=== PATIENT | male | born 1960 | race Caucasian/White ===

== ENCOUNTER → 2021-11-07 12:45 | Outpatient (CLI) | payer BC, SELFPAY ==
--- NOTE | ~2021-11-07 | MR_ITS ---
EXAMINATION: MR shoulder RT w con DATE: 11/07/2021 15:01 INDICATION: Right shoulder pain TECHNIQUE: Magnetic resonance imaging (MRI) of the right shoulder was performed following intra-fouzia cular gadolinium contrast injection and without intravenous contrast. Details of the glenohumeral nando nt injection have been dictated separately. Sequences included axial T2-weighted FS FSE, axial T1-we ighted FS FSE, coronal oblique T1-weighted FS FSE, coronal oblique T2-weighted FSE, sagittal T2-weigh antonio FS FSE, sagittal T1-weighted FSE, and ABER (abduction external rotation) T1-weighted FS FSE. COMPARISON: None. FINDINGS: Coracoacromial arch: The acromion undersurface is curved in morphology (type II). The coracoacromial ligament is normal. M oderate acromioclavicular osteoarthritis. Rotator cuff: Mild supraspinatus and infraspinatus tendinopathy. Full-thickness tear at the critical zone of the rodriguez praspinatus and anterior infraspinatus tendons. The tear defect measures 2 cm AP and up to 1.6 in med ial to lateral width. The tear begins anteriorly approximately 7 mm from the footplate and approximat farrah 1.7 cm from the footplate posteriorly. The teres minor tendon is normal. Mild subscapularis tendi nopathy with partial-thickness tear along the lateral margin of the lesser tuberosity footplate allow ing partial medial subluxation of the long head biceps tendon across the medial rim of the intertuber cular groove. No asymmetric rotator cuff muscle atrophy. Biceps tendon, glenoid labrum and glenohumeral cartilage: Moderate tendinopathy of the intra-articular long head biceps tendon without discrete tear. Partial-t hickness tear along the inner third of the 9:00-8:00 position of the posterior glenoid labrum. The hu meral cartilage remains normal. Bones and other: Normal marrow signal with no edema, fracture or pathologic marrow replacing process. There is extens ion of contrast through the full-thickness rotator cuff tear into both the subacromial/subdeltoid bur sa as well as the subcoracoid bursa. IMPRESSION: 1. Moderate-sized full-thickness tear along the critical zone of the supraspinatus and anterior infra spinatus tendons. 2. Mild subscapularis tendinopathy with mild tarsal thickness tear along the lateral margin of the le sser tuberosity footplate allowing medial subluxation of the long head biceps tendon across the media l rim of the intertubercular groove. 3. Moderate tendinopathy without discrete tear of the intra-articular long head biceps tendon. 4. Moderate acromioclavicular osteoarthritis. Reviewed, dictated and finalized at location [facility]. PRODUCTION WORKER IMPRESSION: 1. Moderate-sized full-thickness tear along the critical zone of the supraspina tus and anterior infraspinatus tendons. 2. Mild subscapularis tendinopathy with mild tarsal thickness tear along the la teral margin of the lesser tuberosity footplate allowing medial subluxation of the long head biceps tendon across the medial rim of the intertubercular groove . 3. Moderate tendinopathy without discrete tear of the intra-articular long head biceps tendon. 4. Moderate acromioclavicular osteoarthritis.
--- NOTE | ~2021-11-07 | XR_ITS ---
XR fl inj shoulder RT - MR/CT DATE: 11/07/2021 14:09 INDICATION: Right shoulder pain. MR contrast material injection for MRI shoulder examination TECHNIQUE: The purpose of the procedure and technique were discussed with the patient. The patient ve rbalized understanding and gave consent. Following sterile preparation of the anterior aspect of the right shoulder and placement of sterile d rape, 1% lidocaine local anesthetic was a weir fisher to the skin of the anterior aspect of the right sh oulder and the underlying subcutaneous tissues. A 22-gauge spinal needle was introduced from an anterior approach into the right glenohumeral joint s pace using fluoroscopic guidance. 12 cc of mixed lidocaine, dilute multi-Chuck and Omnipaque 350 was injected under fluoroscopic visual ization to ensure intra-articular injection. A single radiographic image was saved. The patient tolerated the procedure very well, without complaint or apparent complication. IMPRESSION: Preprocedural glenohumeral joint intra-articular contrast material injection for MRI shou lder examination Reviewed, dictated and finalized at [facility]. Reviewed, dictated and finalized at [facility]. COMBER IMPRESSION: Preprocedural glenohumeral joint intra-articular contrast material injection for MRI shoulder examination
== END ==
PROVIDERS: PCP Internal Medicine
DX: M25.511 Pain in right shoulder (principal); S46.911A Strain of unspecified muscle, fascia and tendon at shoulder and upper arm level, right arm, initial encounter; S46.111A Strain of muscle, fascia and tendon of long head of biceps, right arm, initial encounter; M19.011 Primary osteoarthritis, right shoulder
CPT/HCPCS: 23350; 73222; 77002; A9577; Q9966

== ENCOUNTER → 2022-06-26 10:15 | Outpatient (CLI) | payer BC, SELFPAY ==
--- NOTE | ~2022-06-26 | CT_ITS ---
EXAMINATION: CT lung screening DATE: 06/26/2022 10:35 INDICATION: Personal history of tobacco dependence TECHNIQUE: Computed tomography (CT) of the chest was performed without intravenous contrast. The dose -length product was 188.61 mGy-cm. Automated exposure control and iterative reconstruction technique were employed. COMPARISON: None FINDINGS: Heart size is normal. No significant pleural or pericardial effusion. Upper abdomen is unre markable. No thoracic lymphadenopathy. There is atherosclerosis. No endobronchial lesions. No pneumot horax. No focal airspace consolidation. There are small 2-3 mm fissural nodules on the right. There a re a few small 1-2 mm nodules bilaterally, likely benign. There is mild thickening of the esophagus d istally, suspicious for esophagitis. There is moderate thoracic spondylosis. IMPRESSION: 1. Lung-RADS category 2: Benign appearance or behavior. Continue annual screening with noncontrast lo w-dose chest CT in 12 months. Reviewed, dictated and finalized at [facility]. IMPRESSION: 1. Lung-RADS category 2: Benign appearance or behavior. Continue annual screeni ng with noncontrast low-dose chest CT in 12 months.
== END ==
PROVIDERS: PCP Internal Medicine; Visit Provider Internal Medicine
DX: Z12.2 Encounter for screening for malignant neoplasm of respiratory organs (principal); Z87.891 Personal history of nicotine dependence
CPT/HCPCS: 71271

== ENCOUNTER 2024-09-04 11:19 | Outpatient (CLI) | payer MEDICARE, OTHER, SELFPAY ==
--- NOTE | ~2024-09-04 | CT_ITS ---
CT Scan of the Chest without Contrast: Clinical Indication: Lung cancer screening, nicotine dependence Technique: Contiguous sections were acquired throughout the chest without intravenous contrast. Dose reduction technique was used on this scan by utilizing automated exposure control and iterative recon struction technique. The dose-length product (DLP) was 189.04 mGy-cm. COMPARISON: 06/26/2022 Findings: There is no evidence of any significant mediastinal, hilar or axillary lymphadenopathy. Extensive cor onary artery calcifications are present. There is no evidence of pleural or pericardial effusion. There is linear scarring or atelectasis in the right middle lobe. No pulmonary nodules or infiltrates are noted. Images through the upper abdomen reveal no abnormalities. Impression: Lung RADS 1: Negative. 12 month follow-up screening CT advised. Reviewed, dictated and finalized at [facility]. Impression: Lung RADS 1: Negative. 12 month follow-up screening CT advised.
== END 2024-09-04 11:20 | disposition home or self-care (01) ==
LOC: MICIMG 11:20
PROVIDERS: PCP Internal Medicine; Visit Provider Internal Medicine
DX: Z12.2 Encounter for screening for malignant neoplasm of respiratory organs (principal); Z87.891 Personal history of nicotine dependence
CPT/HCPCS: 71271

== ENCOUNTER 2025-03-18 13:20 | Outpatient (CLI) | payer MEDICARE, OTHER, SELFPAY ==
--- NOTE | ~2025-03-18 | US_ITS ---
EXAMINATION: US renal BI DATE: 03/18/2025 13:40 INDICATION: Hydronephrosis TECHNIQUE: Multiple ultrasound grayscale images of the kidneys were obtained. COMPARISON: None. FINDINGS: The right kidney measures 8.6 x 5.1 x 5.8 cm. The left kidney measures 9.6 x 6.5 x 6.2 cm. The kidney s demonstrate normal echogenicity. There is no hydronephrosis in either kidney. No stones identified . The bladder is normal. IMPRESSION: 1. Normal kidneys without hydronephrosis. Reviewed, dictated and finalized at location [facility].
== END 2025-03-18 13:21 | disposition home or self-care (01) ==
LOC: MICIMG 13:22
PROVIDERS: PCP Internal Medicine; Visit Provider Internal Medicine
DX: N18.30 Chronic kidney disease, stage 3 unspecified (principal)
CPT/HCPCS: 76775